=== PATIENT | female | born 1995 | race Caucasian/White ===

== ENCOUNTER 2016-06-10 18:17 | Emergency (ER) | payer OTHER ==
[2016-06-10 18:18] LABS: URINE SOURCE CLEAN CATCH
[2016-06-10 18:25] LABS: URINE APPEARANCE CLEAR; URINE BILIRUBIN NEG (NEG); URINE BLOOD NEG (NEG); URINE COLOR YELLOW; URINE GLUCOSE NEG (NEG); URINE KETONE NEG (NEG); URINE LEUKOCYTE ESTERASE TRACE (NEG); URINE NITRATE NEG (NEG); URINE PROTEIN NEG (NEG); URINE SPECIFIC GRAVITY 1.018 (1.003-1.035)
[2016-06-10 18:37] LABS: UWBCS1 AUWI 0-2 (0-5)
[2016-06-10 18:38] LABS: URINE MUCUS PRESENT; URINE SQUAMOUS EPITHELIAL CELL MODERATE /[HPF]
[2016-06-10 18:39] LABS: CULTURE INDICATED? NO
[2016-06-14 08:07] LABS: CHLAMYDIA TRACH Detected (Not Detected); N GONOR Not Detected (Not Detected)
== END 2016-06-10 19:00 | disposition home or self-care (01) ==
LOC: CED 18:17
PROVIDERS: Nurse Practitioner
DX: N76.0 Acute vaginitis (principal); Z20.2 Contact with and (suspected) exposure to infections with a predominantly sexual mode of transmission; F17.200 Nicotine dependence, unspecified, uncomplicated
CPT/HCPCS: 81003; 84703; 87220; 87491; 87591; 87808; 87905; 96372; 99283; 99284; J0696